=== PATIENT | female | born 2000 | race Caucasian/White ===

== ENCOUNTER 2019-05-06 11:18 | Emergency (ER) | payer OTHER ==
[~2019-05-06] VITALS: Ht 142.2 cm; Wt 45.8 kg
[2019-05-06 11:23] VITALS: Ht 142.2 cm; Wt 45.8 kg
[2019-05-06 13:25] VITALS: BP 126/85
== END 2019-05-06 13:25 | disposition home or self-care (01) ==
LOC: ED 11:18
DX: O26.891 Other specified pregnancy related conditions, first trimester (principal); R11.2 Nausea with vomiting, unspecified; R19.7 Diarrhea, unspecified; Z3A.00 Weeks of gestation of pregnancy not specified